=== PATIENT | male | born 1980 | race Two or more races ===

== ENCOUNTER 2019-07-05 12:47 | Emergency (ER) | payer OTHER ==
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
--- NOTE | 2019-07-05 14:42 | CT ---
CT cervical spine Technique: Multiple axial sections through the cervical spine were obtained from above C1 inferiorly to the top of T2. Reconstructed sagittal and coronal images were reviewed. Findings: Slight endplate spurring is noted off the superior and anterior C3-C4 vertebral body. Slight anterior osteophytes are noted at C5-C6 with anterior disc bulge which contains a calcification. No fracture is appreciated. No bony central bony neural foraminal stenosis is seen. No abnormal subluxation is seen on the reconstructed sagittal images. Impression: Slight degenerative change. No acute abnormality is appreciated on CT study of the cervical spine. Diagnostic code #2 MTDD
--- NOTE | 2019-07-05 14:46 | CT ---
Head CT Technique: Multiple axial sections through the brain were obtained. Intravenous contrast was not utilized. Comparison: No previous intracranial imaging. Artifact noted on this exam. This diminishes details. Findings: Ventricles along with basal cisterns and sulci over the convexities are within normal limits for the patient's age. No abnormal parenchymal densities are seen. No evidence of intracranial hemorrhage. No midline shift or mass effect is seen. Small rounded soft tissue densities are seen within both maxillary sinuses believed to represent incidental retention cyst. No acute calvarial abnormality is seen. Impression: 1. Artifact. Within this limitation, nothing acute is appreciated on noncontrast head CT exam. 2. Retention cysts are noted within both maxillary sinuses which is felt to be incidental. Diagnostic code #2 MTDD
== END 2019-07-05 15:05 | disposition home or self-care (01) ==
LOC: MW.ED 12:47
DX: M54.2 Cervicalgia (principal); R51 Headache; V43.52XA Car driver injured in collision with other type car in traffic accident, initial encounter; Y92.410 Unspecified street and highway as the place of occurrence of the external cause
CPT/HCPCS: 70450; 70450-26; 72125; 72125-26; 99283; 99283-25

== ENCOUNTER 2020-10-26 08:23 | Emergency (ER) | payer OTHER ==
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
[2020-10-26] MEDS ORDERED: Ibuprofen 600 MG Tab PO ONE (08:58)
[2020-10-26] MEDS ORDERED: Cyclobenzaprine 10 MG Tab PO ONE (08:58)
--- NOTE | 2020-10-26 09:12 | CR ---
Indication: Shoulder pain Technique: Right shoulder 3 views Comparison: None Findings: Bones: Alignment is normal. No fractures or bone lesions. Joint spaces: The glenohumeral and AC joints and the subacromial space are preserved. No significant degenerative changes. Soft tissues: Unremarkable. Impression: Unremarkable shoulder. No findings to explain pain. Dictated by Luis M Ortiz MD @ Oct 26 2020 9:10AM Signed by Dr. Luis M Ortiz @ Oct 26 2020 9:11AM
== END 2020-10-26 09:40 | disposition home or self-care (01) ==
LOC: MW.ED 08:23
DX: M25.511 Pain in right shoulder (principal)
CPT/HCPCS: 73030; 99283; A9270; 99282

== ENCOUNTER 2024-05-17 14:38 | Emergency (ER) | payer OTHER | END 2024-05-17 18:00 | disposition home or self-care (01) | LOC: MW.ED 14:38 | DX: S49.91XA Unspecified injury of right shoulder and upper arm, initial encounter (principal); F17.210 Nicotine dependence, cigarettes, uncomplicated; Z79.899 Other long term (current) drug therapy; Z75.8 Other problems related to medical facilities and other health care; X50.0XXA Overexertion from strenuous movement or load, initial encounter | CPT/HCPCS: 73030-26-RT; 73030-RT; 99283 ==